=== PATIENT | female | born 1985 | race Caucasian/White ===

== ENCOUNTER 2016-11-26 15:42 | Outpatient (CLI) | payer OTHER | END 2016-11-26 15:43 | disposition home or self-care (01) | DRG 558 | LOC: CONVCARE 15:42 | PROVIDERS: ATTEND Orthopaedic Surgery | DX: M72.2 Plantar fascial fibromatosis (principal) | CPT/HCPCS: 73650 ==

== ENCOUNTER 2019-01-23 10:14 | Outpatient (CLI) | payer OTHER | END 2019-01-23 10:15 | disposition home or self-care (01) | DRG 556 | LOC: CONVCARE 10:14 | PROVIDERS: ATTEND Orthopaedic Surgery | DX: M79.672 Pain in left foot (principal); S96.112A Strain of muscle and tendon of long extensor muscle of toe at ankle and foot level, left foot, initial encounter | CPT/HCPCS: 73630 ==